=== PATIENT | male | born 2000 | race African-American/Black ===

== ENCOUNTER 2025-05-09 20:06 | Observation (INO) | payer BC, SELFPAY ==
--- NOTE | ~2025-05-09 | CT_ITS ---
CT of the Abdomen and Pelvis: Indication: Abdominal pain Technique: 2.5 mm axial scans were obtained through the abdomen and pelvis following intravenous adm inistration of 100 cc of Omnipaque 350. Dose reduction technique was used on this scan by utilizing a utomated exposure control and iterative reconstruction technique. The dose-length product (DLP) was 5 72.17 mGy-cm. Findings: Scans through the lung bases are unremarkable. The liver, spleen, pancreas, gallbladder, adrenals and kidneys are within normal limits. No evidence of aortic aneurysm. No lymphadenopathy. Appendix is dilated to 13 mm with mild periappendiceal inflammatory change, compatible acute appendic itis. No abscess or free air. No bowel obstruction. Images through the pelvis were performed. Urinary bladder unremarkable. No pelvic mass seen. Trace fr ee fluid within the pelvis. Impression: Acute appendicitis, as detailed above. No abscess or free air. Reviewed, dictated and finalized at [facility]. Impression: Acute appendicitis, as detailed above. No abscess or free air.
--- OUTSIDE RECORDS SUMMARY | 2025-05-09 20:08 | XMS_ITS | Clinical Summary ---
Author Organization [facility] Address [address] [place] [address] Care Team Providers Care Concrete Bucket Unloader Name Role Phone Beti Green MD Primary Care Provider [phone] Source Comments [facility] [employer],non-owned Affiliates and Associated Physician Practices is amultiple site organization consisting of ambulatory clinics and hospital sitesin [place], [place], [place] and [place]. This disclosure is being madepursuant to the Care Everywhere program and may not contain all information available regarding this patient. Last updated 18.[facility] Allergies No known active allergies Medications * Be aware that medications may not be up to date on this document. Alwaysverify current medications with the patient. ibuprofen (MOTRIN) 200 MG tablet Take 800 mg by mouth every 6 hours as needed for Pain Active ofloxacin (OCUFLOX) 0.3 % ophthalmic solutionIndications :Other mucopurulent conjunctivitis of left eye 1-2 gtt in left eye q2-4h WA x 2 days, then 1-2 gtt qid x5 days. 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 Gender Identity Not on file Sexual Orientation Not on file Last Filed Vital Signs Vital Sign Reading Time Taken Comments Blood Pressure 122/80 10/27/2018 9:06 AM ICE CREAM SCOOPER Pulse 78 10/27/2018 9:06 AM ICE CREAM SCOOPER Temperature 37.2 C (98.9 F) 10/27/2018 9:06 AM ICE CREAM SCOOPER Respiratory Rate 16 10/27/2018 9:06 AM ICE CREAM SCOOPER Oxygen Saturation 97% 10/27/2018 9:06 AM ICE CREAM SCOOPER Inhaled Oxygen Concentration - - Weight 119.7 kg (264 lb) 10/27/2018 9:06 AM ICE CREAM SCOOPER Height 185.4 cm (6' 1) 10/27/2018 9:06 AM ICE CREAM SCOOPER Body Mass Index 34.83 10/27/2018 9:06 AM ICE CREAM SCOOPER Plan of Treatment Health Maintenance Due Date Last Done Comments HIV SCREENING 2015 HPV VACCINE (1 - Male 3-dose series) 2015 HEPATITIS C SCREENING 09/11/2018 DTAP/TDAP/TD VACCINES (1 - Tdap) 2019 HEPATITIS B VACCINE (1 of 3 - 19+ 3-dose series) 2019 COVID-19 VACCINE (1 - 2023-2 5 season) 2024 DEPRESSION SCREENING 10/25/2024 INFLUENZA VACCINE (#1) 2025 ZOSTER VACCINE (1 of 2) 2050 HIB VACCINE Aged Out No longer eligi ble based on patient's age to complete this topic MENINGOCOCCAL (Group B) VACC INE SHARED DECISION-MAKING Aged Out No longer eligibl e based on patient's age to complete this topic MENINGOCOCCAL GROUPS A/C/Y/W VACCINE Aged Out No longer eligible b ased on patient's age to complete this topic PNEUMOCOCCAL VACCINE Aged Out No long er eligible based on patient's age to complete this topic Insurance [facility] Care Teams Concrete Bucket Unloader Relationship Specialty Start Date End Date Beti Green MD [address] [place] [address] [address] [place] [address] PCP - General Pediatrics 09/09/15
--- OUTSIDE RECORDS SUMMARY | 2025-05-09 20:08 | XMS_ITS | Clinical Summary ---
Author Organization [facility] Address [address] [place] [id number] Care Team Providers Care Artificial Fly Tier Name Role Phone Unavailable Primary Care Provider Unavailabl e Social History Tobacco Use Types Packs/Day Years Used Date Smoking Tobacco: Never Assessed Sex and Gender Information Value Date Recorded Sex Assigned at Not on file Legal Sex Male 7:33 PM CDT Gender Identity Not on file Sexual Orientation Not on file Plan of Treatment Health Maintenance Due Date Last Done Comments Annual Physical 2003 HPV Vaccines (1 - Male 3-dos e series) 2015 Hepatitis C 2018 DTaP, Tdap and Td Vaccines ( 1 - Tdap) 2019 Hepatitis B Vaccines (1 of 3 - 19+ 3-dose series) 2019 COVID-19 Vaccine ( - 2023-2 5 season) 2024 Meningococcal B Vaccine Aged Out No l onger eligible based on patient's age to complete this topic Meningococcal Vaccine Aged Out No lupe lillian eligible based on patient's age to complete this topic Pneumococcal Vaccine: Pediat rics (0 to 5 Years) and At-Risk Patients (6 to 49 Years) Aged Out No longer eligible b ased on patient's age to complete this topic RSV Immunizations Under 20 Months Aged Out No longer eligible based on patient's age to complete this topic
[2025-05-09 20:09] VITALS: BP 120/73; PULSE 72; RESP 18; TEMP 36.6; O2SAT 100
--- OUTSIDE RECORDS SUMMARY | 2025-05-09 20:09 | XMS_ITS | Patient Health Record ---
Author Organization [facility] Address [address] [place] [address] Care Team Providers Care Nozzle And Sleeve Worker Name Role Phone Luis Antonio Sainz Unavailable [phone] Reason For Referral No Information Medications Medication SIG (Take, Route, Frequency, Duration) Notes Start Date End Date Status Qelbree 200 MG Oral *Reorder from Ms dispan for eRx and Interaction Alerts* 09/25/2022 Active Immunizations Vaccine Route Administration Date Status Comme nts Jose Alfredo Covid-19 Vaccine Unknown 12/31/2020 Administere d Plan Of Treatment No Information Insurance Providers Payer Name Payer Address Payer Phone Subscriber Number Group Number Insured Name Patient Relationship to Insured Coverage Start Date Coverage End Date [facility] [address] [place] [address] [id number] ISELA FOFANA Natural Child - Insured has Financial Responsibility
[2025-05-09 20:45] LABS: Hematocrit 46.0 % (42.0-52.0); Hemoglobin 15.1 g/dL (14.0-18.0); Immature Granulocyte Percent A 0.3 % (0-0.5); Lymphocytes Absolute Auto 1.45 K/mm3 (0.9-3.2); Mean Corpuscular HGB Conc 32.8 g/dl (32-36); Mean Corpuscular Hemoglobin 30.8 pg (26-34); Mean Corpuscular Volume 93.9 fl (80-100); Nucleated Red Blood Cells Absolute Auto 0.000 K/mm3 (0.0-0.012); Nucleated Red Blood Cells Perc 0.0 % (0.0-0.2); Platelet Count Result 236 k/mm3 (150-375); Red Blood Count 4.90 M/mm3 (4.6-6.20); White Blood Count 13.0 K/mm3 (4.5-10.0)
[2025-05-09 20:59] LABS: Alanine Aminotransferase 22 U/L (6-50); Albumin Level 4.7 g/dL (3.5-5.1); Alkaline Phosphatase 88 U/L (38-126); Anion Gap 13 mmol/L (4-12); Aspartate Amino Transferase 27 U/L (17-59); Bilirubin,Total 2.4 mg/dL (0.2-1.3); Blood Urea Nitrogen 11 mg/dL (9-20); Calcium 9.7 mg/dL (8.4-10.2); Carbon Dioxide 20 mmol/L (22-30); Chloride 106 mmol/L (98-107); Estimated Glomerular Filt Rate > 60; Glucose 98 mg/dL (65-110); Lipase 97 U/L (23-300); Potassium 3.6 mmol/L (3.4-5.0); Sodium 139 mmol/L (137-145); Total Protein 7.9 g/dL (6.3-8.2)
[2025-05-09 23:32] VITALS: BP 135/79; PULSE 82; RESP 19; O2SAT 99
--- OUTSIDE RECORDS SUMMARY | 2025-05-09 23:50 | XMS_ITS | Clinical Summary ---
Author Organization [facility] Address [address] [place] [address] Care Team Providers Care Customer Supply Chain Analyst Name Role Phone Unavailable Primary Care Provider [...]
--- OUTSIDE RECORDS SUMMARY | 2025-05-09 23:50 | XMS_ITS | Clinical Summary ---
Author Organization [facility] Address [address] [place] [address] Care Team Providers Care Manager Of Radiology Name Role Phone Beti Green MD Primary Care Provider [phone] Source Comments [facility] [employer],non-owned Affiliates and Associated Physician Practices is amultiple site organization consisting of ambulatory clinics and hospital sitesin [place], [place], [place] and [place]. This disclosure is being madepursuant to the Care Everywhere program and may not contain all information available regarding this patient. Last updated 18.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 Gender Identity Not on file Sexual Orientation Not on file Last Filed Vital Signs Vital Sign Reading Time Taken Comments Blood Pressure 122/80 10/27/2018 9:06 AM SENIOR DESIGN ENGINEERING SPECIALIST Pulse 78 10/27/2018 9:06 AM SENIOR DESIGN ENGINEERING SPECIALIST Temperature 37.2 C (98.9 F) 10/27/2018 9:06 AM SENIOR DESIGN ENGINEERING SPECIALIST Respiratory Rate 16 10/27/2018 9:06 AM SENIOR DESIGN ENGINEERING SPECIALIST Oxygen Saturation 97% 10/27/2018 9:06 AM SENIOR DESIGN ENGINEERING SPECIALIST Inhaled Oxygen Concentration - - Weight 119.7 kg (264 lb) 10/27/2018 9:06 AM SENIOR DESIGN ENGINEERING SPECIALIST Height 185.4 cm (6' 1) 10/27/2018 9:06 AM SENIOR DESIGN ENGINEERING SPECIALIST Body Mass Index 34.83 10/27/2018 9:06 AM SENIOR DESIGN ENGINEERING SPECIALIST Plan of Treatment Health Maintenance Due Date [...] patient's age to complete this topic Insurance [facility] Care Teams Manager Of Radiology Relationship Specialty Start Date End Date Beti Green MD [address] [place] [address] [address] [place] [address] PCP - General Pediatrics 09/09/15
[2025-05-10] VITALS (16 sets, daily range): BP systolic 115–161; BP diastolic 56–83; PULSE 52–118; RESP 14–30; TEMP 35.9–37.5; O2SAT 96–100; BMI 24.3
--- NOTE | 2025-05-10 00:40 | ED.ABDPAIN ---
HPI - Abdominal Pain General Chief Complaint: Abdominal Pain Stated Complaint: abd pain, n/v Time Seen by Provider: 05/09/25 23:30 History of Present Illness HPI narrative: 24-year-old otherwise healthy male presenting to the emergency department with right-sided flank pain radiating towards his umbilicus region. Symptoms onset earlier this afternoon and gradually started migrating from his right flank towards his periumbilical region now. Pain with deep palpation, no nausea but did vomit 1 time from the pain. Symptoms started slowly improving and now pain is down to 3/10. No fever, chills, urinary complaints. No history of kidney stones, no abdominal surgical history. Was otherwise in his normal state of health. Related Data Home Medications ?Medication ?Instructions ?Recorded ?Confirmed ?Last Taken ?Type No Home Medications 05/13/22 05/10/25 Unknown History Allergies Allergy/AdvReac Type Severity Reaction Status Date / Time No Known Allergies Allergy Verified 05/09/25 20:07 Review of Systems Review of Systems: As reviewed above in HPI [facility] Family History Family History Mother Alcoholism Depression Anxiety Grandparent Alcoholism Cancer Diabetes mellitus Hypertension Cerebrovascular accident Social History Social History Smoking status: Current every day smoker Tobacco type: e-cigarettes/vaping Second hand tobacco smoke exposure: No Alcohol intake: current Drinks per week: 1 Alcohol use details: occasionally- maybe 2 every other month Substance use: current Substance use type: marijuana Do You Feel Safe in your Home?: Yes Lack of Transportation: No Lack of Food: Never True Current Housing: I Do Not Have Housing Concerned About Future Housing: No Difficulty Paying Gas/Electric Bills: No Difficulty Paying for Meds: No Currently Unemployed: No Education: High School Diploma/GED Difficulty w/ Childcare or Family Care: No Living arrangements: with family Occupation/Education: student Additional occupation/education comments: [employer] Spiritual care concerns: No Agree to blood products: Yes Exam Narrative: GENERAL: [Well-appearing, well-nourished, and in no acute distress.] HEAD: [Normocephalic, atraumatic.] EYES: [PERRLA and EOMI.] ENT: Nares clear, no rhinorrhea or epistaxis. Mucous membranes moist. NECK: Supple. CHEST: [Clear to auscultation. No respiratory distress.] HEART: [Regular rate and rhythm]. No murmur heard. [Normal peripheral pulses.] ABDOMEN: [Soft, nondistended], reproducible pain with palpation of the periumbilical and right lower quadrant region but no overlying skin changes or signs of peritonitis, [No rigidity or guarding] EXTREMITIES: Normal range of motion. [No edema.] SKIN: Warm, dry, no rash. NEURO: [No focal deficits]. Alert and oriented [x3.] PSYCH: [Normal mood and affect.] Course Vital Signs Vital signs: Vital Signs Temperature 36.6 C 05/09/25 20:09 Pulse Rate 72 05/09/25 20:09 Respiratory Rate 18 05/09/25 20:09 Blood Pressure 120/73 05/09/25 20:09 Pulse Oximetry 100 05/09/25 20:09 Temperature 36.5 C 05/10/25 06:43 Pulse Rate 70 05/10/25 06:43 Respiratory Rate 16 05/10/25 06:43 Blood Pressure 128/59 L 05/10/25 06:43 Pulse Oximetry 99 05/10/25 06:43 MDM - Abdominal Pain MDM Narrative Medical decision making narrative: 24-year-old otherwise healthy male presenting to the emergency department with right-sided flank pain radiating towards his umbilicus region. Symptoms onset earlier this afternoon and gradually started migrating from his right flank towards his periumbilical region now. Pain with deep palpation, no nausea but did vomit 1 time from the pain. Symptoms started slowly improving and now pain is down to 3/10. No fever, chills, urinary complaints. No history of kidney stones, no abdominal surgical history. Was otherwise in his normal state of health. Patient is otherwise healthy appearing not any acute distress with normal vital signs with any tachycardia, fever, hypoxia blood pressure elevations. He has reproducible tenderness on examination in the periumbilical and right lower quadrant region which raises suspicion and differential diagnosis to include appendicitis, colitis, gastroenteritis, intra-abdominal abscess, perforated viscus, less likely cholecystitis, kidney stone, urinary tract infection, or vascular issue. Laboratory studies were obtained including CBC, CMP, lipase, urinalysis. He was offered analgesia but politely declined at this time is pain is improving[place] [id number], CT scan of the abdomen pelvis was ordered with IV contrast for further evaluation. CT scan shows acute appendicitis without abscess or perforation. Discussed the case with the general surgeon Dr. Monson who accepted the patient to his service. Patient was made NPO and started on Zosyn. Fluids initiated and p.r.n. medications ordered. Patient and family made aware of the plan and comfortable with admission. Medical Records Attestation: I reviewed the patient's medical records. Lab Data Attestation: I reviewed the patient's lab results. 05/09/25 20:16 05/09/25 20:16 Labs: Lab Results 05/09/25 05/10/25 Range/Units 20:16 00:45 WBC 13.0 H (4.5-10.0) K/mm3 RBC 4.90 (4.6-6.20) M/mm3 Hgb 15.1 (14.0-18.0) g/dL Hct 46.0 (42.0-52.0) % MCV 93.9 (80-100) fl MCH 30.8 (26-34) pg MCHC 32.8 (32-36) g/dl RDW 11.5 (11.5-14.5) % Plt Count 236 (150-375) k/mm3 MPV 10.2 (7.4-10.4) fl Immature Gran % (Auto) 0.3 (0-0.5) % Neut % (Auto) 80.1 H (45.5-73.1) % Lymph % (Auto) 11.1 L (18.3-44.2) % [place] % (Auto) 7.7 (2.6-8.5) % Eos % (Auto) 0.5 (0-4.4) % Baso % (Auto) 0.3 (0.2-1.2) % Lymph # (Auto) 1.45 (0.9-3.2) K/mm3 [place] # (Auto) 1.0 H (0.1-0.6) K/mm3 Eos # (Auto) 0.1 (0-0.3) K/mm3 Baso # (Auto) 0.0 (0.0-0.1) K/mm3 Abs Immat Gran (auto) 0.04 H (0.00-0.031) K/mm3 Absolute Neuts (auto) 10.5 H (1.3-6.7) K/mm3 Absolute Nucleated RBC 0.000 (0.0-0.012) K/mm3 Nucleated RBC % 0.0 (0.0-0.2) % Sodium 139 (137-145) mmol/L Potassium 3.6 (3.4-5.0) mmol/L Chloride 106 (98-107) mmol/L Carbon Dioxide 20 L (22-30) mmol/L Anion Gap 13 H (4-12) mmol/L BUN 11 (9-20) mg/dL Creatinine 1.02 (0.7-1.3) mg/dL Estim Creat Clear Calc Not Reportable Estimated GFR > 60 (59 - ) Glucose 98 (65-110) mg/dL Calcium 9.7 (8.4-10.2) mg/dL Total Bilirubin 2.4 H (0.2-1.3) mg/dL AST 27 (17-59) U/L ALT 22 (6-50) U/L Alkaline Phosphatase 88 (38-126) U/L Total Protein 7.9 (6.3-8.2) g/dL Albumin 4.7 (3.5-5.1) g/dL Lipase 97 (23-300) U/L Urine Color Yellow (Yellow) Urine Appearance Clear (Clear) Urine pH 7.5 (5.0-9.0) Ur Specific [place] > 1.045 H (1.001-1.035) Urine Protein Negative (Negative) mg/dL Urine Glucose (UA) 3+ H (Negative) mg/dL Urine Ketones 1+ H (Negative) mg/dL Ur Blood (Man) Negative (Negative) Urine Nitrate Negative (Negative) Urine Bilirubin Negative (Negative) Urine Urobilinogen 0.2 (<2.0) mg/dL Leukocyte Esterase Rfl Negative (Negative) VIVIANA/UL Imaging Data Attestation: I personally reviewed and interpreted this imaging study as follows: My impression: Acute appendicitis Radiologist's impression: ITS Impressions Abdomen/Pelvis CT 05/10/25 05:37 Impression: Acute appendicitis, as detailed above. No abscess or free air. Critical Care Time Critical Care Time Critical Care Time: Yes Total Critical Care Time: 35 Discharge Plan Discharge Clinical Impression: Acute appendicitis Patient Disposition: Still a Patient Condition: Stable
[2025-05-10] MEDS: LACTATED RINGERS 1,000 ML 999 ML IV CONT (01:00)
[2025-05-10 01:05] LABS: Add Urine Microscopic? NO; Appearance Urine Clear (Clear); Glucose Urine UA 3+ mg/dL (Negative); Leukocyte Esterase Ur Negative LEU/UL (Negative); Nitrate Urine Negative (Negative); Specific Grav Ur > 1.045 (1.001-1.035)
[2025-05-10] MEDS: PIPERACILLIN/TAZOBACTAM SOD 3.375 GM in SODIUM CHLORIDE 0.9% IV 50 ML 100 ML IVPB ×3 (04:18→20:03)
[2025-05-10] MEDS: LACTATED RINGERS 1,000 ML 125 ML IV CONT (06:39)
--- NOTE | 2025-05-10 06:46 | ADMGEN ---
This patient, Issa Garces, was admitted to [facility] Room 312-01. Patient/family oriented to hospital policies and general routines including ID bracelet, bed and alarms, visiting hours, pain management, procedures, bathroom and other care routines, personal items, smoking policy, room service/diet, and visiting hours. Information on how to activate the Rapid Response Team has been discussed. Patient/Family are encouraged to report perceived risks to care and to ask questions if they do not understand what they are told or what they should do.
--- NOTE | 2025-05-10 09:31 | P.HP_ITS ---
H&P: HPI History of Present Illness Date/Time: 05/10/25 09:31 Chief Complaint: Abdominal pain Narrative: This is a 24-year-old male who presented to the ED for complaints of abdominal pain. He had an onset of right-sided abdominal pain yesterday around noon. He developed nausea and vomiting. His pain moved to the periumbilical area over the next few hours. The pain has remained constant and is aggravated by movement. He presented to the ED last night for further evaluation. [place] [id number] with a left shift. CT scan of the abdomen and pelvis shows acute appendicitis with no obvious perforation or abscess. Patient was admitted for surgical evaluation and treatment. Also noted is a bilirubin of 2.4. Other LFTs normal. Previous labs from 2021 showed an elevated total bilirubin then as well. Denies history of Gilbert's syndrome or other liver disease. No history of abdominal surgery. Review of Systems Review of Systems: All systems reviewed & are unremarkable except as noted in HPI and below PMFSH Past Medical History Medical History No pertinent past medical history Surgical History Surgical History No pertinent past surgical history Family History Family History Mother Alcoholism Depression Anxiety Grandparent Alcoholism Cancer Diabetes mellitus Hypertension Cerebrovascular accident Social History Social History Smoking status: Current every day smoker Tobacco type: e-cigarettes/vaping Second hand tobacco smoke exposure: No Alcohol intake: current Drinks per week: 1 Alcohol use details: occasionally- maybe 2 every other month Substance use: current Substance use type: marijuana Do You Feel Safe in your Home?: Yes Lack of Transportation: No Lack of Food: Never True Current Housing: I Do Not Have Housing Concerned About Future Housing: No Difficulty Paying Gas/Electric Bills: No Difficulty Paying for Meds: No Currently Unemployed: No Education: High School Diploma/GED Difficulty w/ Childcare or Family Care: No Living arrangements: with family Occupation/Education: student Additional occupation/education comments: [employer] Spiritual care concerns: No Agree to blood products: Yes Meds Home Medications and Allergies Home Medications ?Medication ?Instructions ?Recorded ?Confirmed ?Type No Home Medications 05/13/22 05/10/25 History Allergies Allergy/AdvReac Type Severity Reaction Status Date / Time No Known Allergies Allergy Verified 05/09/25 20:07 Vital Signs Vital Signs - 24 hr 05/09/25 20:09 05/09/25 23:32 05/10/25 01:23 Temperature 97.8 F Pulse Rate 72 82 62 Respiratory Rate 18 19 15 Blood Pressure 120/73 135/79 123/75 Pulse Oximetry 100 99 98 Oxygen Delivery 05/10/25 03:28 05/10/25 05:59 05/10/25 06:34 Temperature Pulse Rate 62 73 73 Respiratory Rate 17 15 15 Blood Pressure 127/79 138/83 138/83 Pulse Oximetry 97 99 99 Oxygen Delivery 05/10/25 06:43 05/10/25 08:00 Temperature 97.7 F Pulse Rate 70 Respiratory Rate 16 Blood Pressure 128/59 L Pulse Oximetry 99 Oxygen Delivery Room Air Exam Const: General: comfortable and no acute distress Nutritional Appearance: average body habitus Orientation/consciousness: patient oriented x3 HENMT: Head: normocephalic and atraumatic Ears: hearing grossly normal bilaterally Mouth: Yes moist mucous membranes Eyes: General: appearance normal, both eyes and all related structures Pupils: Equal, round and reactive pupils present Neck: Neck: normal visual inspection and full ROM Resp: Effort & Inspection: no respiratory distress Auscultation: clear to auscultation bilaterally Cardio: Rate: regular rate Rhythm: regular rhythm Peripheral pulses: Peripheral pulses 2+ throughout GI: Inspection: non-distended and no scars GI Palp: Yes Soft to palpation, Yes Tenderness to palpation present (GI) (Focal right lower quadrant tenderness), Yes Guarding due to palpation present (GI) (Right lower quadrant), No Hernia present and No Rebound tenderness present Percussion: Yes normal to percussion Auscultation: normal bowel sounds Skin: General skin exam: normal color Neuro: General: moves all extremities and no focal motor deficits Speech: normal speech Motor exam (neuro): 5/5 motor strength present throughout Extrem: General: normal to inspection and no edema Psych: Mental Status: mental status grossly normal Attitude: cooperative Insight: Good insight present (Psych) Judgement: Good judgement present (Psych) H&P: Results Labs Labs: Short CBC 05/09/25 Range/Units 20:16 WBC 13.0 H (4.5-10.0) K/mm3 Hgb 15.1 (14.0-18.0) g/dL Hct 46.0 (42.0-52.0) % Plt Count 236 (150-375) k/mm3 BMP 05/09/25 20:16 Sodium 139 Potassium 3.6 Chloride 106 Carbon Dioxide 20 L BUN 11 Creatinine 1.02 Glucose 98 Calcium 9.7 Liver Function 05/09/25 Range/Units 20:16 Total Bilirubin 2.4 H (0.2-1.3) mg/dL AST 27 (17-59) U/L ALT 22 (6-50) U/L Alkaline Phosphatase 88 (38-126) U/L Albumin 4.7 (3.5-5.1) g/dL Urine 05/10/25 Range/Units 00:45 Urine Color Yellow (Yellow) Urine Appearance Clear (Clear) Urine pH 7.5 (5.0-9.0) Ur Specific [place] > 1.045 H (1.001-1.035) Urine Protein Negative (Negative) mg/dL Urine Glucose (UA) 3+ H (Negative) mg/dL Imaging CT scan - abdomen: Radiologist's impression: ITS Impressions Abdomen/Pelvis CT 05/10/25 05:37 Impression: Acute appendicitis, as detailed above. No abscess or free air. Assessment and Plan Assessment and plan (1) Acute appendicitis: Code(s): K35.80 - Unspecified acute appendicitis Status: Acute Assessment and Plan: * CT reviewed and discussed with the patient in detail. There is evidence of acute appendicitis. No perforation or abscess evident on CT. We discussed both nonoperative treatment with IV antibiotics/monitoring versus proceeding with surgery. We discussed the risks of recurrence or treatment failure with the option of antibiotic therapy. I also discussed the details of a laparoscopic appendectomy, possible open, under general anesthesia that would be done by Dr. Monson. Description of the procedure, risks, benefits, alternatives, and expected recovery were discussed. He agrees to proceed with surgery. Will keep him NPO and continue IV antibiotics, IV fluids, and analgesics as needed pre- operatively. He has been added to the surgery schedule for today. (2) Smoker: Code(s): F17.200 - Nicotine dependence, unspecified, uncomplicated Status: Acute Assessment and Plan: * Cigarette and marijuana use. Encouraged cessation. (3) Elevated bilirubin: Code(s): R17 - Unspecified jaundice Status: Acute Assessment and Plan: * Noted on previous labs from 2021 as well. Asymptomatic. No previous diagnosis of Gilbert's or any other liver disorder. Recommended follow-up with PCP as an outpatient once recovered from appendicitis. Plan I have discussed the patient's case and plan of care with Dr. Monson.
[2025-05-10] MEDS: ACETAMINOPHEN 500 MG TABLET 1000 MG PO (16:00)
[2025-05-10] MEDS: KETOROLAC 15 MG/ML VIAL (*BKC) IV PUSH (16:00)
[2025-05-10] MEDS: LACTATED RINGERS 1,000 ML 30 ML IV CONT ×2 (16:08→18:15)
--- NOTE | 2025-05-10 16:08 | P.PNAN_ITS ---
Anes - Initial Pre Proc Eval Procedure: Operation Date: 05/10/25 16:30 Proposed Procedures p Laparoscopic Appendectomy - Armando Monson DO Date/Time: 05/10/25 16:08 Surgeon: Armando Monson DO Pre Op Diagnosis: Acute appendicitis Patient Data Age: 24 Gender: M Height: 1.88 m Weight: 85.7 kg Last Vital Signs Temp 99.5 F 05/10/25 16:03 Pulse 65 05/10/25 16:03 Resp 16 05/10/25 16:03 BP 115/72 05/10/25 16:03 Pulse Ox 99 05/10/25 16:03 O2 Del Method Room Air 05/10/25 16:03 Allergies Allergy/AdvReac Type Severity Reaction Status Date / Time No Known Allergies Allergy Verified 05/10/25 15:59 Home Medications ?Medication ?Instructions ?Recorded ?Confirmed ?Type No Home Medications 05/13/22 05/10/25 History Laboratory Tests 05/09/25 05/10/25 20:16 00:45 WBC 13.0 H K/mm3 (4.5-10.0) RBC 4.90 M/mm3 (4.6-6.20) Hgb 15.1 g/dL (14.0-18.0) Hct 46.0 % (42.0-52.0) MCV 93.9 fl (80-100) MCH 30.8 pg (26-34) MCHC 32.8 g/dl (32-36) RDW 11.5 % (11.5-14.5) Plt Count 236 k/mm3 (150-375) MPV 10.2 fl (7.4-10.4) Immature Gran % (Auto) 0.3 % (0-0.5) Neut % (Auto) 80.1 H % (45.5-73.1) Lymph % (Auto) 11.1 L % (18.3-44.2) [place] % (Auto) 7.7 % (2.6-8.5) Eos % (Auto) 0.5 % (0-4.4) Baso % (Auto) 0.3 % (0.2-1.2) Lymph # (Auto) 1.45 K/mm3 (0.9-3.2) [place] # (Auto) 1.0 H K/mm3 (0.1-0.6) Eos # (Auto) 0.1 K/mm3 (0-0.3) Baso # (Auto) 0.0 K/mm3 (0.0-0.1) Abs Immat Gran (auto) 0.04 H K/mm3 (0.00-0.031) Absolute Neuts (auto) 10.5 H K/mm3 (1.3-6.7) Absolute Nucleated RBC 0.000 K/mm3 (0.0-0.012) Nucleated RBC % 0.0 % (0.0-0.2) Sodium 139 mmol/L (137-145) Potassium 3.6 mmol/L (3.4-5.0) Chloride 106 mmol/L (98-107) Carbon Dioxide 20 L mmol/L (22-30) Anion Gap 13 H mmol/L (4-12) BUN 11 mg/dL (9-20) Creatinine 1.02 mg/dL (0.7-1.3) Estim Creat Clear Calc Not Reportable Estimated GFR > 60 (59 - ) Glucose 98 mg/dL (65-110) Calcium 9.7 mg/dL (8.4-10.2) Total Bilirubin 2.4 H mg/dL (0.2-1.3) AST 27 U/L (17-59) ALT 22 U/L (6-50) Alkaline Phosphatase 88 U/L (38-126) Total Protein 7.9 g/dL (6.3-8.2) Albumin 4.7 g/dL (3.5-5.1) Lipase 97 U/L (23-300) Urine Color Yellow (Yellow) Urine Appearance Clear (Clear) Urine pH 7.5 (5.0-9.0) Ur Specific [place] > 1.045 H (1.001-1.035) Urine Protein Negative mg/dL (Negative) Urine Glucose (UA) 3+ H mg/dL (Negative) Urine Ketones 1+ H mg/dL (Negative) Ur Blood (Man) Negative (Negative) Urine Nitrate Negative (Negative) Urine Bilirubin Negative (Negative) Urine Urobilinogen 0.2 mg/dL (<2.0) Leukocyte Esterase Rfl Negative VIVIANA/UL (Negative) Patient hx anesthesia problems: none Family hx anesthesia problems: none Results Review: All pre-operative results and documents have been reviewed as part of the pre- operative evaluation. [facility] Past Medical History Medical History No pertinent past medical history Surgical History Surgical History No pertinent past surgical history Family History Family History Mother Alcoholism Depression Anxiety Grandparent Alcoholism Cancer Diabetes mellitus Hypertension Cerebrovascular accident Social History Social History Smoking status: Current every day smoker Tobacco type: e-cigarettes/vaping Second hand tobacco smoke exposure: No Alcohol intake: current Drinks per week: 1 Alcohol use details: occasionally- maybe 2 every other month Substance use: current Substance use type: marijuana Do You Feel Safe in your Home?: Yes Lack of Transportation: No Lack of Food: Never True Current Housing: I Do Not Have Housing Concerned About Future Housing: No Difficulty Paying Gas/Electric Bills: No Difficulty Paying for Meds: No Currently Unemployed: No Education: High School Diploma/GED Difficulty w/ Childcare or Family Care: No Living arrangements: with family Occupation/Education: student Additional occupation/education comments: [employer] Spiritual care concerns: No Agree to blood products: Yes Anes - Eval Final PreProcedure Day of Procedure 05/10/25 16:08 Patient weight: normal Lungs: normal air movement Airway: Mallampati scale class II Neurological: alert and oriented Last oral intake: >/= 8 hours ASA classification: II Emergent: yes Anesthetic plan: proceed Anesthesia type and monitoring: general ETT and standard monitoring Results Review: All pre-operative results and documents have been reviewed as part of the pre- operative evaluation. Pt vapes daily, prev smoked cigs. Active w skateboarding, no cp or sob . Informed Consent: The patient's anesthetic plan and its attendant risks and benefits were discussed with the patient/family/POA. Questions were solicited and answers provided to the satisfaction of the patient/family/POA.
--- NOTE | 2025-05-10 16:57 | WPDHPUPDATE1 ---
History and Physical Update Update Date/Time: 05/10/25 16:57 History and Physical has been reviewed, including an updated exam of the patient. There are NO changes in the patient's condition. Risks, benefits, and alternatives have been discussed and questions answered. Patient agrees to proceed with procedure.
[2025-05-10] MEDS: PIPERACILLIN/TAZOBACTAM SOD 3.375 GM in SODIUM CHLORIDE 0.9% IV 50 ML IVPB (17:17)
--- NOTE | 2025-05-10 17:43 | S_PTH ---
PATIENT: Issa Garces LOC: [id number] U#:[id number] AGE/SX: 24/M ROOM: 312 RE05/10/[address]: Armando Monson DO : 2000 BED: 01 DIS: 05/10/2025 SPEC #: [id number] RECD: 05/11/25 08:01 STATUS: HARRY REQ #: [id number] LOULOU: 05/10/25 17:[address]: Armando Monson DEPT: [facility] Surgical RECD BY: Zohra Louie ENTERED: 05/11/25 08:02 SP TYPE: Surgical OTHR DR: DO Yadira Duong, ADALID Worley, MD Riaz Berumen, Tissues: A - Appendix Procedures: Hematoxylin and Eosin Stain Gross and Microscopic Level 3
[2025-05-10] MEDS: BUPIVACAINE/EPINEPHRINE 0.5% 50 ML VIAL 30 ML INFILTRATE (17:50)
--- NOTE | 2025-05-10 18:03 | P.OP_ITS ---
Procedure Note - Detailed Date of Procedure 05/10/25 Pre-op Diagnosis Acute appendicitis Post-op Diagnosis Same Procedure Performed Laparoscopic appendectomy Surgeon Armando Monson, DO Anesthesia General and Local (0.5% bupivacaine with epinephrine) Indications This is a 24-year-old man who presented to the emergency department this morning with right lower quadrant pain that started a couple days prior. This started as vague periumbilical pain but that eventually localized to the right lower quadrant. He denied any fevers or chills. He has never had any symptoms like this in the past. He was noted to have an elevated white blood count and CT showed evidence of acute appendicitis. He was placed in observation and further discussions were made with the patient about treatment options. Decision was made to proceed with laparoscopic appendectomy, possible open. Findings Laparoscopic appendectomy was performed. The appendix appeared dilated and indurated, but there was no evidence of perforation or abscess. The base of the appendix appeared healthy and viable. The appendix was removed and sent to the lab for pathology. No other intra-abdominal abnormalities were noted. Description of Procedure Procedure as well as risks, benefits, and alternatives were explained to the patient. The patient agreed to proceed. Written consent was obtained and placed in chart prior to procedure. The patient was brought back to surgical suite. He was placed supine on operating table. Time-out was done to confirm the patient and procedure. The patient was then intubated by the Anesthesia De partment. his abdomen was prepped and draped in sterile fashion using chlorhexidine prep. A 12 mm incision was made at the inferior portion of the umbilicus. Blunt dissection was carried out down to the linea alba. The linea alba was then incised using a 15 blade scalpel. Then bluntly entered into the peritoneal cavity. A 12 mm trocar was then inserted, and carbon dioxide insufflation was used to create a pneumoperitoneum. The camera was inserted and the abdomen was inspected. No immediate abnormalities were identified. The patient was then placed in slight Trendelenburg position and rotated to the left. A 5 mm incision was made in the suprapubic region in midline and a 5 mm trocar was inserted under direct visualization. A 5 mm incision was made in the left lower quadrant and a 5 mm trocar was inserted under direct visualization. The right lower quadrant was carefully inspected. The cecum was identified and then this was traced back to the appendix. The appendix was identified and grasped at the mesoappendix and lifted anteriorly. Careful blunt dissection was carried out at the base of the appendix through the mesoappendix using a [place] grasper. An Endo-YANETH 45 mm blue load stapler was then advanced across the base of the appendix and clamped and fired. A white reload was then clamped across the mesoappendix and fired. This freed up our appendix completely. It was then placed in an EndoCatch bag and removed through the umbilical port. The staple lines were then inspected. Hemostasis appeared adequate and the staple lines appeared secure. The area was then irrigated with sterile saline. The pelvis was then carefully inspected and irrigated with sterile saline as well and the remainder of the abdomen was carefully inspected. The patient was then flattened out in bed. One final inspection was made around the abdominal cavity and no other abnormalities were seen. The ports were then removed under direct visualization. The camera was removed and the pneumoperitoneum was released. The fascia of the umbilical incision was reapproximated using an 0 Vicryl [id number] suture. 0.5% bupivacaine with epinephrine was infiltrated locally around each of the incisions. The skin of the incisions was then approximated using 4-0 Monocryl subcuticular suture and Exofin glue was applied on top. The patient was then awakened from anesthesia, extubated, and transferred to Recovery. Estimated Blood Loss 5 Pathology Yes (Appendix) Complications No immediate complications Condition Stable Disposition Floor [facility] Billing Surgery - Charge Forward: Surgery Billing
--- NOTE | 2025-05-10 18:05 | P.DS_ITS ---
DS: Admitting Diagnosis Discharge Date 05/10/2025 Admitting Diagnosis acute appendicitis DS: Discharge Diagnosis Discharge Diagnosis (1) Acute appendicitis: Qualifiers: Acute appendicitis type: with localized peritonitis Appendicitis abscess presence: without abscess Appendicitis gangrene presence: without gangrene Appendicitis perforation presence: without perforation Qualified Code(s): K35.30 - Acute appendicitis with localized peritonitis, without perforation or gangrene Code(s): K35.80 - Unspecified acute appendicitis Status: Acute DS: Summary Hospital Course Reason for hospitalization: acute appendicitis Hospital Course: this is a 24-year-old man who presented to the emergency department on 05/10/2025 with right lower quadrant pain. He was noted to have an elevated white blood count and CT showed evidence of acute appendicitis. He was placed in observation and started on IV Zosyn. He then underwent laparoscopic appendectomy on 05/10/2025. Surgery was uncomplicated. He was returned to the surgical floor postoperatively. His diet and activity were advanced as tolerated. He was discharged home once pain was adequately controlled, vitals remained stable, he was ambulating in the halls, and he was tolerating his diet. Time spent discussing smoking cessation with patient: 3 to 10 minutes Status at Discharge Functional status at discharge: independent ambulation Overall status at discharge: patient is progressing back to baseline Time Spent with Patient Time attestation: Total time spent providing and/or coordinating discharge services: Time spent: Less than 30 minutes Exam Const: General: comfortable and no acute distress Resp: Effort & Inspection: normal respiratory effort Auscultation: clear to auscultation bilaterally Cardio: Rate: regular rate Rhythm: regular rhythm GI: Inspection: incision ( Intact with glue) DS: Data Data Completed and Pending Pending studies at discharge: Pending at discharge 05/10/25 17:43 Surgical [PTH] Routine Labs on day of discharge: Labs from last 24 hours 05/10/25 05/09/25 00:45 20:16 WBC 13.0 H RBC 4.90 Hgb 15.1 Hct 46.0 MCV 93.9 MCH 30.8 MCHC 32.8 RDW 11.5 Plt Count 236 MPV 10.2 Immature Gran % (Auto) 0.3 Neut % (Auto) 80.1 H Lymph % (Auto) 11.1 L [place] % (Auto) 7.7 Eos % (Auto) 0.5 Baso % (Auto) 0.3 Lymph # (Auto) 1.45 [place] # (Auto) 1.0 H Eos # (Auto) 0.1 Baso # (Auto) 0.0 Abs Immat Gran (auto) 0.04 H Absolute Neuts (auto) 10.5 H Absolute Nucleated RBC 0.000 Nucleated RBC % 0.0 Sodium 139 Potassium 3.6 Chloride 106 Carbon Dioxide 20 L Anion Gap 13 H BUN 11 Creatinine 1.02 Estim Creat Clear Calc Not Reportable Estimated GFR > 60 Glucose 98 Calcium 9.7 Total Bilirubin 2.4 H AST 27 ALT 22 Alkaline Phosphatase 88 Total Protein 7.9 Albumin 4.7 Lipase 97 Urine Color Yellow Urine Appearance Clear Urine pH 7.5 Ur Specific [place] > 1.045 H Urine Protein Negative Urine Glucose (UA) 3+ H Urine Ketones 1+ H Ur Blood (Man) Negative Urine Nitrate Negative Urine Bilirubin Negative Urine Urobilinogen 0.2 Leukocyte Esterase Rfl Negative Imaging Radiologist's impression: ITS Impressions Abdomen/Pelvis CT 05/10/25 05:37 Impression: Acute appendicitis, as detailed above. No abscess or free air. Discharge Plan Discharge Attending physician on discharge: Armando Aguilar Consulting providers: Yadira Cooper; hBavin Johnson; Orestes Worley Discharging Clinician: Armando Aguilar Anticipated Discharge Date/Time: 05/10/25 21:00 Patient Disposition: Home Activity: other - see discharge instructions Diet: other - see discharge instructions Wound Care Instructions: other - see discharge instructions Discharge Instructions: DISCHARGE INSTRUCTION SHEET FOR HERNIA, GALLBLADDER AND APPENDIX SURGERIES DR. AGUILAR PATIENT TO TAKE HOME 1. May shower in 24 hours, no soaking in bath x 2weeks. 2. Call office for: * Wound increasingly painful or bleeding * Vomiting * Fever of greater than 101 degrees 3. If no bowel movement for three days, take 1 oz. (30 ml) Milk of Magnesia or MiraLax 17g 1 to 2 times daily. 4. No heavy lifting > 10-15 pounds x weeks for hernia repairs and 2 weeks for laparoscopic cholecystectomy or appendectomy. 5. No driving for 3 days or while taking narcotic pain medications. 6. Ice to surgical site for 48 hours (30 min on, then 30 min off). 7. Up walking 10-30 minutes three times per day. 8. Resume previous home medications. 9. Follow-up 10-14 days in office for wound check or as previously scheduled. ([phone]) 10. Oral pain medications prescription to be sent to pharmacy. Take Tylenol 500mg every 6 hours and Ibuprofen 600mg every 6 hours for the first 2 days, then as needed. 11. NUTRITION: Start out by drinking fluids and increase your diet as tolerated. If you experience nausea, try dry toast, crackers, and 7-UP. If nausea or vomiting persists, contact your surgeon?s office. 12. Gallbladders-Low Fat Diet for 2 weeks (send care note of low fat diet) 13. Inguinal Hernias-wear scrotal support for 48 hours 14. Abdominal Hernias-if sent home with abdominal binder, wear for the first 2 weeks (may remove to shower or at night to sleep). Revised February 2019 Patient Instructions: Antibiotic Form, Opioid Safety (DC) Patient Language: Greek Stand Alone Forms: General Discharge Information Follow-up/Referrals: Armando Aguilar, [Physician] - 2 Weeks Discharge Medications: New hydrocodone-acetaminophen 5-325 mg tablet 1 tablet PO Q4H PRN (Reason: pain) Qty: 10 0RF No Action No Home Medications Date of admission: 05/10/25 04:26 Primary Care Provider: Riaz Berumen Admitting Provider: Armando Aguilar Attending physician on admission: Armando Aguilar Condition: Improved
[2025-05-10] MEDS: LACTATED RINGERS 1,000 ML 100 ML IV CONT (19:57)
== END 2025-05-10 22:30 | disposition home or self-care (01) ==
LOC: ANHED 05-10 04:53 → ANH3MEDSUR 05-10 05:30
PROVIDERS: Admitting Provider Surgery; Emergency Provider Student in an Organized Health Care Education/Training Program; PCP Internal Medicine; Visit Provider Surgery
PROC: 0DTJ4ZZ Resection of Appendix, Percutaneous Endoscopic Approach (ICD-10-PCS; CPT 44970; principal; 2025-05-10 16:30)
DX: K35.80 Unspecified acute appendicitis (principal); F17.290 Nicotine dependence, other tobacco product, uncomplicated; R17 Unspecified jaundice
CPT/HCPCS: 44970; 36415; 74177; 80053; 81003; 83690; 85025; 88304; 96361; 96365; 96375; 99285; A9270; G0378; J1885; J2543; J3010; J7030; J7120; Q9967